=== PATIENT | male | born 1950 | race Caucasian/White ===

== ENCOUNTER 2018-02-14 17:45 | Emergency (ER) | payer MEDICARE, SELFPAY ==
[2018-02-14 17:56] VITALS: BP 157/95; PULSE 76; RESP 16; TEMP 36.9; O2SAT 100; BMI 24.1
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
--- NOTE | 2018-02-14 18:25 | PC.NURSE ---
pt wanting to leave. after discussion with dr peters agreed to observation. pt brought magazines to read upon request. resting in bed appears in no distress
[2018-02-14 18:26] VITALS: BP 157/109; PULSE 63; RESP 16; O2SAT 96
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
[2018-02-14 18:49] VITALS: BP 155/91; PULSE 70; RESP 20; O2SAT 100
[2018-02-14 19:34] VITALS: BP 140/96; PULSE 67; RESP 18; O2SAT 98
== END 2018-02-14 19:37 | disposition left against medical advice (07) ==
LOC: ED 18:42
PROVIDERS: Emergency Provider Emergency Medicine
DX: S09.90XA Unspecified injury of head, initial encounter (principal); S06.0X9A Concussion with loss of consciousness of unspecified duration, initial encounter; V18.2XXA Unspecified pedal cyclist injured in noncollision transport accident in nontraffic accident, initial encounter
CPT/HCPCS: 99282; 99283